=== PATIENT | female | born 1960 | race Caucasian/White ===

== ENCOUNTER → 2017-06-03 | Outpatient (CLI) | payer OTHER ==
[~2017-06-03] MED LIST: ADDERALL 30 MG30 MG PO; ADDERALL XR 3030 MG PO; ASPIR 8181 MG PO; ASPIRIN325 PO; CLONAZEPAM 0.50.5 M1 PO; CYMBALTA60 MG PO; LOPRESSOR25 PO; MOBIC15 MG PO; PACERONE 200 M200 M1 PO; TOPROL XL25 MG PO; TRAZODONE 150150 M1 PO
== END ==
LOC: CAT 09:21 → EDSTATUS 16:29 → CAT 16:31
DX: I71.03 Dissection of thoracoabdominal aorta (principal)